=== PATIENT | female | born 1980 ===

== ENCOUNTER 2018-01-21 11:32 | Emergency (ER) | payer MEDICAID, OTHER ==
[2018-01-21 11:41] VITALS: O2SAT 100
[2018-01-21] MEDS ORDERED: Amoxicillin-Clav 875-125 mg Tab PO ONE (12:11)
[2018-01-21 12:44] LABS: HCG,QUALITATIVE URINE NEGATIVE (NEGATIVE)
--- NOTE | 2018-01-21 13:00 | C.PDOC ---
History Of Present Illness 37 year old female presents to the ED for evaluation of left sided pain to the pelvic region. She admits to having a tummy tuck done three months ago in [facility]. After arriving to the [place], she saw her Dr, Dr. Garcia, who diagnosed he r with embolism in the left leg and prescribed her Xarelto. The patient reports feeling pain and a "bump" growing on the left side of the pelvic region after taking Xarelto, prompting ED visit. The patient denies any N/V/D, CP, SOB or vaginal bleeding. Time Seen by Provider: 01/21/18 12:07 Chief Complaint (Nursing): Abdominal Pain History Per: Patient History/Exam Limitations: no limitations Onset/Duration Of Symptoms: Days Current Symptoms Are (Timing): Still Present Location Of Pain/Discomfort: Other (pelvic) Quality Of Discomfort: "Pain" Associated Symptoms: denies: Nausea, Vomiting, Diarrhea, Other (vaginal bleeding) Recent travel outside of the [place]: No Past Medical History Reviewed: Historical Data, Nursing Documentation, Vital Signs Vital Signs: Last Vital Signs Temp 97.9 F 01/21/18 11:38 Pulse 88 01/21/18 11:38 Resp 20 01/21/18 11:38 BP 115/70 01/21/18 11:38 Pulse Ox 100 01/21/18 11:38 - Medical History PMH: No Chronic Diseases Other Surgeries: tummy tuck Family History: States: Unknown Family Hx - Social History Hx Tobacco Use: No Hx Alcohol Use: No Hx Substance Use: No - Immunization History Hx Tetanus Toxoid Vaccination: No Hx Influenza Vaccination: No Hx Pneumococcal Vaccination: No Review Of Systems Except As Marked, All Systems Reviewed And Found Negative. Cardiovascular: Negative for: Chest Pain Respiratory: Negative for: Shortness of Breath Gastrointestinal: Negative for: Nausea, Vomiting, Abdominal Pain, Diarrhea Genitourinary: Positive for: Pelvic Pain (left sided). Negative for: Vaginal Bleeding Physical Exam - Physical Exam Additional Physical Exam Comments: Constitutional: No acute distress. Head: Normocephalic. Atraumatic. Eyes: PERRL. ENT: Moist mucous membranes. Neck: Supple. Cardiovascular: Regular rate. Radial pulse 2+ bilaterally. Chest: No tenderness. Respiratory: Clear to auscultation bilaterally. GI: Soft. Nontender. Nondistended. Back: No CVA tenderness. Musculoskeletal: No tenderness or swelling of extremities. Skin: No rash. lower pelvic surgical incision without discharge Neurologic: Alert, no focal deficit. Multiple, small, firm, tender nodules on left pelvic area ED Course And Treatment - Laboratory Results Result Diagrams: 01/21/18 13:16 01/21/18 13:16 O2 Sat by Pulse Oximetry: 100 (RA) Pulse Ox Interpretation: Normal - CT Scan/US Abdomen and Pelvis Other Rad Studies (CT/US): Read By Radiologist, Radiology Report Reviewed CT/US Interpretation: IMPRESSION: 1. Within the subcutaneous soft tissues of the mid to lower back, extending into the bilateral gluteal regions, there are multiple and innumerable rounded soft tissue densities of uncertain clinical etiology, possibly related to iatrogenic injections. Clinical correlation. Some of these appear partially calcified. In addition, there appears to be developing atrophy of the gluteal muscles bilaterally. 2. Within the left lower anterior abdominal subcutaneous soft tissues, there are additional lobulated soft tissue densities, also suggestive for possible injection foci. Some of these appear to be enhancing with adjacent reticulation and edema within the soft tissues which may represent developing superimposed acute infectious and or inflammatory changes. For example on series 3, image 144, a 1.5 centi meter enhancing collection may represent some developing phlegmonous changes. Clinical correlation. 3. Small fat containing umbilical hernia. 4. Heterogeneous uterus, endometrium, and cervix. Enhancing right ovarian cyst with crenulated margins measuring 1.7 centimeters. 1.7 centimeter left ovarian cyst. Correlation with pelvic ultrasound may be helpful. Medical Decision Making Medical Decision Making: Impression: 37 y/o female who had a tummy tuck done three months ago, presents to the ED complaining of feeling pain and a "bump" growing on the left side of the pelvic region after taking Xarelto Plan: -CT of abdomen/pelvis -CMP -CBC -PTT -PT -UA Labs unremarkable. Vitals normal. Will discharge on antibiotics, f/u PMD and Surgery, return to ED for worsening pain, fever, vomiting, dyspnea, or any other problem. Disposition - Disposition Referrals: Angelique Garcia MD [Medical Doctor] - Disposition: HOME/ ROUTINE Disposition Time: 14:59 Condition: STABLE Additional Instructions: Return to the Emergency Room immediately if you have fever, worsening pain, shortness of breath, vomiting, or any other concerning symptoms. CT Abdomen/Pelvis FINDINGS: LOWER THORAX: Atelectasis at the lung bases. LIVER: Mild intrahepatic biliary ductal dilatation. GALLBLADDER AND BILE DUCTS: Contracted gallbladder. PANCREAS: Unremarkable. No gross lesion or ductal dilatation. SPLEEN: Unremarkable. ADRENALS: Unremarkable. No mass. KIDNEYS AND URETERS: Unremarkable. No hydronephrosis. No solid mass. VASCULATURE: Unremarkable. No aortic aneurysm. BOWEL: Unremarkable. No obstruction. No gross mural thickening. APPENDIX: Not well visualized. PERITONEUM: Unremarkable. No free fluid. No free air. LYMPH NODES: Unremarkable. No enlarged lymph nodes. BLADDER: Unremarkable. REPRODUCTIVE: Heterogeneous uterus, endometrium, and cervix. Enhancing right ovarian cyst with crenulated margins measuring 1.7 centimeters. 1.7 centimeter left ovarian cyst. Correlation with pelvic ultrasound may be helpful. BONES: No acute fracture. OTHER FINDINGS: Small fat containing umbilical hernia. Within the subcutaneous soft tissues of the mid to lower back, extending into the bilateral gluteal regions, there are multiple and innumerable rounded soft tissue densities of uncertain clinical etiology, possibly related to iatrogenic injections. Clinical correlation. Some of these appear partially calcified. In addition, there appears to be developing atrophy of the gluteal muscles bilaterally. Within the left lower anterior abdominal subcutaneous soft tissues, there are additional lobulated soft tissue densities, also suggestive for possible injection foci. Some of these appear to be enhancing with adjacent reticulation and edema within the soft tissues which may represent developing superimposed acute infectious and or inflammatory changes. For example on series 3, image 144, a 1.5 centimeter enhancing collection may represent some developing ph legmonous changes. Clinical correlation. IMPRESSION: 1. Within the subcutaneous soft tissues of the mid to lower back, extending into the bilateral gluteal regions, there are multiple and innumerable rounded soft tissue densities of uncertain clinical etiology, possibly related to iatrogenic injections. Clinical correlation. Some of these appear partially calcified. In addition, there appears to be developing atrophy of the gluteal muscles bilaterally. 2. Within the left lower anterior abdominal subcutaneous soft tissues, there are additional lobulated soft tissue densities, also suggestive for possible injection foci. Some of these appear to be enhancing with adjacent reticulation and edema within the soft tissues which may represent developing superimposed acute infectious and or inflammatory changes. For example on series 3, image 144, a 1.5 centimeter enhancing collection may represent some developing phlegmonous changes. Clinical correlation. 3. Small fat containing umbilical hernia. 4. Heterogeneous uterus, endometrium, and cervix. Enhancing right ovarian cyst with crenulated margins measuring 1.7 centimeters. 1.7 centimeter left ovarian cyst. Correlation with pelvic ultrasound may be helpful. Prescriptions: Minocycline HCl 100 mg PO BID #42 tablet Forms: [employer] (Syriac) - Clinical Impression Clinical Impression: Infection due to infusion, injection, or vaccination - PA / PHYSICIAN SURGEON / Resident Statement MD/DO has reviewed & agrees with the documentation as recorded. - Scribe Statement The provider has reviewed the documentation as recorded by the Scribe (Meri Rico) Provider Attestation: All medical record entries made by the Scribe were at my direction and personally dictated by me. I have reviewed the chart and agree that the record accurately reflects my personal performance of the history, physical exam, medical decision making, and the department course for this patient. I have also personally directed, reviewed, and agree with the discharge instructions and disposition.
[2018-01-21 13:20] LABS: BASO # 0.1 K/uL (0.0-0.2); EOS # 0.1 K/uL (0.0-0.7); EOS % 0.7 % (0.0-4.0); HEMOGLOBIN 12.6 g/dL (11.0-16.0); LYMPH # 2.4 K/uL (1.0-4.3); LYMPH % 26.5 % (20.0-40.0); MEAN CELL VOLUME 80.9 fL (81.0-99.0); MEAN CORPUSCULAR HGB CONC 33.4 g/dL (33.0-37.0); MEAN PLATELET VOLUME 7.6 fL (7.2-11.7); MONO # 0.5 K/uL (0.0-0.8); MONO % 5.6 % (0.0-10.0); NEUT % 66.2 % (50.0-75.0); RBC 4.66 Mil/uL (3.80-5.20); RED CELL DISTRIBUTION WIDTH 13.5 % (11.5-14.5)
[2018-01-21 13:22] LABS: URINE BILIRUBIN NEGATIVE (NEGATIVE); URINE BLOOD NEGATIVE (NEGATIVE); URINE CLARITY Hazy (Clear); URINE COLOR Yellow (YELLOW); URINE GLUCOSE (UA) NORMAL (Normal); URINE LEUKOCYTE ESTERASE TRACE Leu/uL (Negative); URINE PROTEIN NEGATIVE (NEGATIVE)
[2018-01-21 13:27] LABS: SQUAMOUS EPITHIAL 3 /hpf (0-5); URINE BACTERIA RARE (<OCC)
[2018-01-21 13:31] LABS: ALB/GLOB RATIO 1.2 (1.0-2.1); ALBUMIN 3.7 g/dL (3.5-5.0); ALT/SGPT 34 U/L (9-52); AST/SGOT 27 U/L (14-36); BLOOD UREA NITROGEN 11 mg/dL (7-17); CALCIUM 8.7 mg/dl (8.6-10.4); GFR NON-AFRICAN AMERICAN > 60
[2018-01-21 13:32] LABS: PROTHROMBIN TIME 22.4 SECONDS (9.7-12.2)
[2018-01-21] MEDS ORDERED: Iodixanol 320 MG/ML 100 ML BOTTLE IV ONE (13:58)
--- NOTE | 2018-01-21 14:45 | CT ---
Date of service: 01/21/2018 PROCEDURE: CT Abdomen and Pelvis without intravenous contrast HISTORY: Left pelvic mass. Pain. Prior tummy tuck. COMPARISON: None available TECHNIQUE: Multiple contiguous axial images were performed through the abdomen and pelvis with the use of intravenous contrast. Subsequently, sagittal and coronal reformatted images were obtained. Atelectasis at the lung bases. Radiation dose: Total exam DLP = 476.83 mGy-cm. This CT exam was performed using one or more of the following dose reduction techniques: Automated exposure control, adjustment of the mA and/or kV according to patient size, and/or use of iterative reconstruction technique. FINDINGS: LOWER THORAX: Atelectasis at the lung bases. LIVER: Mild intrahepatic biliary ductal dilatation. GALLBLADDER AND BILE DUCTS: Contracted gallbladder. PANCREAS: Unremarkable. No gross lesion or ductal dilatation. SPLEEN: Unremarkable. ADRENALS: Unremarkable. No mass. KIDNEYS AND URETERS: Unremarkable. No hydronephrosis. No solid mass. VASCULATURE: Unremarkable. No aortic aneurysm. BOWEL: Unremarkable. No obstruction. No gross mural thickening. APPENDIX: Not well visualized. PERITONEUM: Unremarkable. No free fluid. No free air. LYMPH NODES: Unremarkable. No enlarged lymph nodes. BLADDER: Unremarkable. REPRODUCTIVE: Heterogeneous uterus, endometrium, and cervix. Enhancing right ovarian cyst with crenulated margins measuring 1.7 centimeters. 1.7 centimeter left ovarian cyst. Correlation with pelvic ultrasound may be helpful. BONES: No acute fracture. OTHER FINDINGS: Small fat containing umbilical hernia. Within the subcutaneous soft tissues of the mid to lower back, extending into the bilateral gluteal regions, there are multiple and innumerable rounded soft tissue densities of uncertain clinical etiology, possibly related to iatrogenic injections. Clinical correlation. Some of these appear partially calcified. In addition, there appears to be developing atrophy of the gluteal muscles bilaterally. Within the left lower anterior abdominal subcutaneous soft tissues, there are additional lobulated soft tissue densities, also suggestive for possible injection foci. Some of these appear to be enhancing with adjacent reticulation and edema within the soft tissues which may represent developing superimposed acute infectious and or inflammatory changes. For example on series 3, image 144, a 1.5 centimeter enhancing collection may represent some developing phlegmonous changes. Clinical correlation. IMPRESSION: 1. Within the subcutaneous soft tissues of the mid to lower back, extending into the bilateral gluteal regions, there are multiple and innumerable rounded soft tissue densities of uncertain clinical etiology, possibly related to iatrogenic injections. Clinical correlation. Some of these appear partially calcified. In addition, there appears to be developing atrophy of the gluteal muscles bilaterally. 2. Within the left lower anterior abdominal subcutaneous soft tissues, there are additional lobulated soft tissue densities, also suggestive for possible injection foci. Some of these appear to be enhancing with adjacent reticulation and edema within the soft tissues which may represent developing superimposed acute infectious and or inflammatory changes. For example on series 3, image 144, a 1.5 centimeter enhancing collection may represent some developing phlegmonous changes. Clinical correlation. 3. Small fat containing umbilical hernia. 4. Heterogeneous uterus, endometrium, and cervix. Enhancing right ovarian cyst with crenulated margins measuring 1.7 centimeters. 1.7 centimeter left ovarian cyst. Correlation with pelvic ultrasound may be helpful.
[2018-01-21 14:54] VITALS: BP 100/61; PULSE 80; RESP 18; TEMP 98.4
== END 2018-01-21 15:18 | disposition home or self-care (01) ==
LOC: C.ER 11:32
DX: T80.29XA Infection following other infusion, transfusion and therapeutic injection, initial encounter (principal); Y84.9 Medical procedure, unspecified as the cause of abnormal reaction of the patient, or of later complication, without mention of misadventure at the time of the procedure
CPT/HCPCS: 74177; 80053; 81001; 84703; 85025; 85610; 85730; 99285; Q9967

== ENCOUNTER 2018-02-04 10:28 | Emergency (ER) | payer MEDICAID ==
[2018-02-04 10:34] VITALS: BP 128/88; PULSE 90; RESP 16; TEMP 98.2; O2SAT 98
--- NOTE | 2018-02-04 10:54 | C.PDOC ---
History Of Present Illness 37 y/o female s/p lillie metz x3 months ago, comes in for evaluation of discharge from incisional lining noted for 2 days. Pt reports seeing yellow/green discharge from incision opening. Otherwise, Pt denies fever, chills, abdominal pain, nausea, vomiting , diarrhea , UTI sx, increase pain over incision line, denies any other active complaints. Ambulate to Ed for evaluation, not in any apparent distress. Time Seen by Provider: 02/04/18 10:33 Chief Complaint (Nursing): Abnormal Skin Integrity History Per: Patient History/Exam Limitations: no limitations Onset/Duration Of Symptoms: Days Current Symptoms Are (Timing): Still Present Location Of Injury: Anterior: Abdomen Past Medical History Reviewed: Historical Data, Nursing Documentation, Vital Signs Vital Signs: Last Vital Signs Temp 98.2 F 02/04/18 10:31 Pulse 90 02/04/18 10:31 Resp 16 02/04/18 10:31 BP 128/88 02/04/18 10:31 Pulse Ox 98 02/04/18 10:31 - Medical History PMH: Deep Vein Thrombosis Surgical History: Tonsillectomy Family History: States: Unknown Family Hx - Social History Hx Tobacco Use: No Hx Alcohol Use: No Hx Substance Use: No - Immunization History Hx Tetanus Toxoid Vaccination: No Hx Influenza Vaccination: No Hx Pneumococcal Vaccination: No Review Of Systems Except As Marked, All Systems Reviewed And Found Negative. Constitutional: Negative for: Fever, Chills Gastrointestinal: Negative for: Nausea, Vomiting, Abdominal Pain, Diarrhea Skin: Positive for: Other (surgical lining discharge: green/yellow discoloration of discharge) Physical Exam - Physical Exam Appears: Well, Non-toxic, No Acute Distress Skin: Normal Color, Warm, Other (small,soft,erythematous tender mass 2cm didameter over suprapubic area. No fluctulance, no proximal streaking.) Head: Normacephalic Eye(s): bilateral: PERRL Cardiovascular: Rhythm Regular, No Murmur, No JVD Respiratory: No Decreased Breath Sounds, No Accessory Muscle Use, No Stridor, No Wheezing Gastrointestinal/Abdominal: Soft, No Tenderness, No Distention, No Guarding, No Rebound, Other (well healing incision line lower abdomen wall;scant surround ecchymosis, small opening in incision line noted below umbilicus with scant clear oozing. No erythema, no edema, no proximal streaking) Extremity: Normal ROM (x4), No Deformity, No Swelling Neurological/Psych: Oriented x3, Normal Speech Gait: Steady ED Course And Treatment - Laboratory Results Urine POC: Negative O2 Sat by Pulse Oximetry: 98 (RA) Pulse Ox Interpretation: Normal Progress Note: Impression: evaluation of incision line of abdomen. plan: -- wound cx. Impression: On re-eval, pt is afebrile, hemodynamically stable. Non- toxic. PulseOx 100% on RA. Neck: Supple, (-) JVD. Lungs: CTA B/L, BS equal B/L. Abd: Soft, (-) guarding, (-) rebound. back: (-) CVA tenderness. Wound cx- pending. Pt has clinical findings c/w small opening in insicion line, early abscess suprapubic area. pt advised. ref. to f/u with PMD in 2-3 days for re- eavl. return if any new changes. Disposition Counseled Patient/Family Regarding: Studies Performed, Diagnosis, Need For Followup, Rx Given - Disposition Referrals: Clark Valencia MD [Medical Doctor] - Disposition: HOME/ ROUTINE Disposition Time: 11:04 Condition: STABLE Additional Instructions: Warm salty water compresses to abscess area Take medication as prescribed Follow up with PMD in 2-3 days for re-evaluation. return to ED if any worsening or new changes. Prescriptions: Doxycycline Hyclate [Doryx] 100 mg PO BID #14 cap Instructions: Boil (DC) Forms: [employer] (Mongolian) Print Language: GRENADIAN - Clinical Impression Clinical Impression: Furuncle - PA / ARCHITECTURE DEPARTMENT CHAIR / Resident Statement / has reviewed & agrees with the documentation as recorded. - Scribe Statement The provider has reviewed the documentation as recorded by the Serenity Lorenz Do All medical record entries made by the Scribe were at my direction and personally dictated by me. I have reviewed the chart and agree that the record accurately reflects my personal performance of the history, physical exam, medical decision making, and the department course for this patient. I have also personally directed, reviewed, and agree with the discharge instructions and disposition.
== END 2018-02-04 11:25 | disposition home or self-care (01) ==
LOC: C.ER 10:28
DX: L02.221 Furuncle of abdominal wall (principal)

== ENCOUNTER 2018-08-22 09:08 | Emergency (ER) | payer MEDICAID ==
[2018-08-22 09:19] VITALS: BP 97/66; PULSE 79; RESP 18; TEMP 98.1; O2SAT 100
--- NOTE | 2018-08-22 10:18 | C.PDOC ---
History Of Present Illness 37 y/o female,with PMhx of Crespo's Palsy x2 , presents to the ER complaining of headache and dizziness which has been present for the past 2 days. Patient states that she has dizziness with lying down and she describes the dizziness as the "room spinning." Patient reports that she has tearing and increased blinking in left eye. She notes that she is concerned that she may have stroke and she came to the ER to "prevent stroke." Currently patient denies having headache or dizziness. She denies syncope, visual changes, neck pain, weakness, paresthesias, difficulty speaking, swallowing or ambulating, CP, SOB, nausea, vomiting, and abdominal pain. Chief Complaint (Nursing): Headache History Per: Patient History/Exam Limitations: no limitations Onset/Duration Of Symptoms: Days Current Symptoms Are (Timing): Gone Severity: Moderate Past Medical History Reviewed: Historical Data, Nursing Documentation, Vital Signs Vital Signs: Last Vital Signs Temp 98.1 F 08/22/18 09:15 Pulse 79 08/22/18 09:15 Resp 18 08/22/18 09:15 BP 97/66 L 08/22/18 09:15 Pulse Ox 100 08/22/18 09:15 Primary Care Provider: Tiffany Morales - Medical History PMH: Deep Vein Thrombosis Surgical History: Tonsillectomy Family History: States: No Known Family Hx - Social History Hx Tobacco Use: No Hx Alcohol Use: No Hx Substance Use: No - Immunization History Hx Tetanus Toxoid Vaccination: No Hx Influenza Vaccination: No Hx Pneumococcal Vaccination: No Review Of Systems Except As Marked, All Systems Reviewed And Found Negative. Constitutional: Negative for: Fever, Chills Gastrointestinal: Negative for: Nausea, Vomiting, Abdominal Pain Neurological: Positive for: Headache, Dizziness Physical Exam - Physical Exam Appears: Non-toxic, No Acute Distress Skin: Normal Color, Warm, Dry Head: Atraumatic, Normacephalic Eye(s): bilateral: Normal Inspection, PERRL, EOMI, Other (no nystagmus) Nose: Normal Oral Mucosa: Moist Tongue: Normal Appearing Neck: Normal ROM, Supple Chest: Symmetrical Cardiovascular: Rhythm Regular Respiratory: Normal Breath Sounds, No Rales, No Rhonchi, No Wheezing Gastrointestinal/Abdominal: Normal Exam, Soft, No Tenderness, No Guarding, No Rebound Extremity: Normal ROM, No Tenderness Neurological/Psych: Oriented x3, Normal Speech, Normal Cognition, Normal Cranial Nerves, No Cerebellar Signs, Normal Motor, Normal Sensation, Other (no protonator drift, no nystagmus) Gait: Steady ED Course And Treatment O2 Sat by Pulse Oximetry: 100 (RA) Pulse Ox Interpretation: Normal Medical Decision Making Medical Decision Making: Plan: --POC Urine Test Updates: Patient w/normal exam and no complaints in ED. Plan was POC preg test and d/c home to f/u w/pcp however patient eloped from ER before POC test could be performed. Disposition Counseled Patient/Family Regarding: Diagnosis, Need For Followup - Disposition Disposition: ELOPEMENT - ER ONLY Disposition Time: 10:17 Condition: GOOD Forms: Gen Discharge Inst Chinese, [employer] (Chinese) Print Language: CHADIAN - Clinical Impression Clinical Impression: Dizziness, Headache - Scribe Statement The provider has reviewed the documentation as recorded by the Serenity Ying Provider Attestation: All medical record entries made by the Juditibraine were at my direction and personally dictated by me. I have reviewed the chart and agree that the record accurately reflects my personal performance of the history, physical exam, medical decision making, and the department course for this patient. I have also personally directed, reviewed, and agree with the discharge instructions and disposition.
== END 2018-08-22 10:38 | disposition left against medical advice (07) ==
LOC: C.ER 09:08
DX: R51 Headache (principal); R42 Dizziness and giddiness; Z86.718 Personal history of other venous thrombosis and embolism